=== PATIENT | male | born 1955 | race Caucasian/White ===

== ENCOUNTER 2019-01-19 08:50 | Outpatient (CLI) | payer OTHER | END 2019-01-19 10:00 | disposition home or self-care (01) | LOC: EKG 08:50 | DX: I10 Essential (primary) hypertension (principal) ==

== ENCOUNTER 2019-04-05 10:18 | Outpatient (CLI) | payer OTHER | END 2019-04-05 10:23 | disposition home or self-care (01) | LOC: SONOGRAMA 10:18 | DX: M25.511 Pain in right shoulder (principal); M75.121 Complete rotator cuff tear or rupture of right shoulder, not specified as traumatic ==

== ENCOUNTER 2021-04-09 13:00 | Outpatient (CLI) | payer OTHER | END 2021-04-09 13:08 | disposition home or self-care (01) | LOC: RAD 13:00 | PROVIDERS: ATTEND Orthopaedic Surgery | DX: M25.511 Pain in right shoulder (principal); M25.512 Pain in left shoulder ==

== ENCOUNTER → 2021-04-26 10:02 | Outpatient (CLI) | payer OTHER | END | disposition home or self-care (01) | LOC: MRI 10:02 | PROVIDERS: ATTEND Orthopaedic Surgery | DX: M75.32 Calcific tendinitis of left shoulder (principal); M25.512 Pain in left shoulder; M75.122 Complete rotator cuff tear or rupture of left shoulder, not specified as traumatic | CPT/HCPCS: 73221 ==